=== PATIENT | male | born 1965 | race Caucasian/White ===

== ENCOUNTER 2023-02-11 11:41 | Observation (INO) | payer MEDICARE, SELFPAY ==
[2023-02-11] VITALS (7 sets, daily range): BP systolic 137–151; BP diastolic 72–80; PULSE 60–90; RESP 17–20; TEMP 36.2–36.8; O2SAT 95–96; BMI 33.1
--- NOTE | ~2023-02-11 | XR_ITS ---
EXAMINATION: XR chest 2V DATE: 02/11/2023 11:59 INDICATION: Chest pain and shortness of breath TECHNIQUE: PA and lateral views of the chest were obtained. COMPARISON: None FINDINGS: Nipple shadow projects between the anterior right sixth and seventh ribs. This is confirmed on subseq uent image with nipple markers. Lungs are clear with no focal airspace opacities, pulmonary edema, pl eural effusion or pneumothorax. The cardiomediastinal silhouette is normal. Consistent clips in right upper quadrant. Internal fixation likely for old fracture at the proximal right humerus. There are b ridging osteophytes at multiple levels in the spine, consistent with diffuse idiopathic skeletal hype rostosis (DISH). IMPRESSION: 1. No acute cardiopulmonary disease. Reviewed, dictated and finalized at location A.
--- NOTE | ~2023-02-11 | CT_ITS ---
EXAMINATION: CTA chest PE protocol DATE: 02/11/2023 13:25 INDICATION: Left-sided pleuritic chest pain TECHNIQUE: Computed tomography (CT) pulmonary angiogram of the chest was performed with 100 mL Omnipa que-350 intravenous contrast. Additional 3D reconstructions utilizing coronal maximum intensity proje ction (MIP) were performed. Automated exposure control and iterative reconstruction technique were em ployed. The dose-length product was 908.84 mGy-cm. COMPARISON: None FINDINGS: There are central pulmonary arterial filling defects within the largest in the main pulmonary artery extending into each of the upper, middle and lower lobar and several of the more peripheral subsegmen winifred pulmonary arteries. There is appreciable delay in the contrast opacification of the draining pulm onary veins from the basilar segments of the right lower lobe. Similar but smaller amount of thrombus in the left main pulmonary artery also extending into the left upper, lower and lingular pulmonary a rteries and some of the more peripheral segmental pulmonary arteries. Small focus of discoid atelecta sis at the posterolateral right upper lobe and minimal streaky atelectasis in the superior segment of the left lower lobe. Lungs remain otherwise clear with no evident pulmonary infarcts, pneumonia, pul monary edema or pleural effusion. Heart size is normal. No evident bowing of the ventricular septum t o suggest right heart strain. No pericardial effusion. Thoracic aorta is normal in caliber with no di ssection. No pathologically enlarged thoracic lymphadenopathy. Cholecystectomy clips at the gallbladd er fossa. 1.5 cm right renal cyst. Internal fixation at the proximal right humerus. There are bridgin g osteophytes at multiple levels in the spine, consistent with diffuse idiopathic skeletal hyperostos is (DISH). IMPRESSION: 1. Extensive pulmonary embolism involving all the lobes in both lungs but without evident right heart strain.. Dr. Wray discussed these findings with Dr. Da Silva at 1:32 PM. Reviewed, dictated and finalized at location A. IMPRESSION: 1. Extensive pulmonary embolism involving all the lobes in both lungs but witho ut evident right heart strain.. Dr. Wray discussed these findings with Dr. Da Silva at 1:32 PM.
--- NOTE | ~2023-02-11 | US_ITS ---
EXAMINATION: US venous doppler UE LT DATE: 02/12/2023 14:24 INDICATION: Pulmonary embolism with pleuritic left chest pain and shortness of breath TECHNIQUE: Grayscale images without and with compression and Doppler images of the left upper extremi ty veins were obtained. COMPARISON: None. FINDINGS: The left internal jugular vein, subclavian vein, axillary vein, brachial vein, basilic vein, cephalic vein, radial vein, and ulnar vein are patent. IMPRESSION: 1. Patent left upper extremity veins. No evidence of venous thrombosis. Reviewed, dictated and finalized at location A.
--- NOTE | ~2023-02-11 | US_ITS ---
EXAMINATION: US venous doppler [facility] DATE: 02/12/2023 14:24 INDICATION: Pulmonary embolism with chest pain and shortness of breath TECHNIQUE: Grayscale ultrasound images without and with compression and Doppler ultrasound images of the bilateral lower extremity veins were obtained. COMPARISON: None. FINDINGS: There is noncompressible occlusive appearing thrombus in the right posterior tibial veins at the prox imal to mid right calf. The visualized portions of right common femoral vein, profunda (deep) femoral vein, femoral vein, popliteal vein, posterior tibial veins in the distal calf, peroneal veins, gastr ocnemius vein and greater saphenous vein outflow are patent. The visualized portions of left common femoral vein, profunda femoral vein, femoral vein, popliteal v ein, posterior tibial veins, peroneal veins, gastrocnemius vein and greater saphenous vein outflow ar e patent. IMPRESSION: 1. [id number] deep venous thrombosis in the right posterior tibial veins of the proximal to mid right calf. 2. No deep venous thrombosis in the left lower limb. Reviewed, dictated and finalized at location A. IMPRESSION: 1. [id number] deep venous thrombosis in the right posterior tibial veins o f the proximal to mid right calf. 2. No deep venous thrombosis in the left lower limb.
--- NOTE | 2023-02-11 11:44 | ECG_ITS ---
Measurements Intervals [place] Rate: 85 P: 63 ID: [id number] QRS: -2 QRSD: 98 T: 63 QT: 327 QTc: 390 Interpretive Statements SINUS RHYTHM INCOMPLETE RIGHT BUNDLE BRANCH BLOCK [90+ ms QRS DURATION, TERMINAL R IN V1/V2, 40+ ms S IN I/aVL/V4/V5/V6] LEFTWARD AXIS ABNORMAL ECG NO PREVIOUS ECG AVAILABLE FOR COMPARISON Electronically Signed On 02-11-2023 17:16:25 CDT by Joon Alvares M.D.
[2023-02-11 12:02] LABS: Basophils Percent Auto 0.3 % (0.2-1.2); Eosinophils Absolute Auto 0.1 K/mm3 (0-0.3); Eosinophils Percent Auto 0.9 % (0-4.4); Hematocrit 42.6 % (42.0-52.0); Hemoglobin 14.2 g/dL (14.0-18.0); Immature Granulocyte Absolute 0.01 K/mm3 (0.00-0.031); Immature Granulocyte Percent A 0.1 % (0-0.5); Lymphocytes Absolute Auto 1.36 K/mm3 (0.9-3.2); Lymphocytes Percent Auto 20.1 % (18.3-44.2); Mean Corpuscular HGB Conc 33.3 g/dl (32-36); Mean Corpuscular Hemoglobin 30.9 pg (26-34); Mean Corpuscular Volume 92.6 fl (80-100); Mean Platelet Volume 10.2 fl (7.4-10.4); Monocytes Absolute Auto 0.6 K/mm3 (0.1-0.6); Monocytes Percent Auto 8.4 % (2.6-8.5); Neutrophils Absolute Auto 4.8 K/mm3 (1.3-6.7); Neutrophils Percent Auto 70.2 % (45.5-73.1); Platelet Count Result 145 k/mm3 (150-375); Red Cell Distribution Width 13.8 % (11.5-14.5); White Blood Count 6.8 K/mm3 (4.5-10.0)
[2023-02-11 12:13] LABS: Partial Thromboplastin Time 27.2 SECONDS (22.3-36.8); Prothrombin Time 13.5 Seconds (11.1-14.7)
[2023-02-11 12:14] LABS: Alanine Aminotransferase 22 U/L (6-50); Albumin Level 4.4 g/dL (3.5-5.1); Alkaline Phosphatase 54 U/L (38-126); Anion Gap 8 mmol/L (8-16); Aspartate Amino Transferase 21 U/L (17-59); Bilirubin,Total 0.7 mg/dL (0.2-1.3); Blood Urea Nitrogen 10 mg/dL (9-20); Calcium 9.3 mg/dL (8.4-10.2); Carbon Dioxide 29 mmol/L (22-30); Chloride 103 mmol/L (98-107); Estimated CRCL calculation 15 ml/min; Estimated Glomerular Filt Rate 57; Glucose 106 mg/dL (65-110); Potassium 3.9 mmol/L (3.4-5.0); Sodium 140 mmol/L (137-145)
--- NOTE | 2023-02-11 12:44 | ED.SOB ---
HPI - SOB/Dyspnea General Chief Complaint: Shortness of Breath/Dyspnea Stated Complaint: SOB, chest pain, thinks blood clot Time Seen by Provider: 02/11/23 12:02 History of Present Illness HPI Narrative: Patient is a 57-year-old male with a history of hypertension, hypothyroidism, PE no longer on anticoagulation presenting with chest pain. Patient states that he recently completed a long drive. States that he woke up this morning with left-sided pleuritic chest pain associated with shortness of breath that is worsened with exertion. States it feels similarly to his prior episode of PE. States he has not been on blood thinners for 14 years. He also reports some lightheadedness. Denies numbness or weakness, fevers, abdominal pain, nausea or vomiting, diarrhea, leg swelling, dysuria. Related Data Home Medications Medication Instructions Recorded Confirmed aripiprazole 10 mg tablet (Abilify) 10 mg PO DAILY 02/11/23 02/11/23 elviteg 150 mg-cob 150 mg-emtricit 1 tablet PO QAM 02/11/23 02/11/23 200 mg-tenofo alafenam 10 mg tablet (Genvoya) fenofibric acid (choline) 135 mg 135 mg PO DAILY 02/11/23 02/11/23 capsule,delayed release levothyroxine 75 mcg tablet 75 mcg PO DAILY 02/11/23 02/11/23 lisinopril 10 1 tablet PO DAILY 02/11/23 02/11/23 mg-hydrochlorothiazide 12.5 mg tablet metoprolol succinate 25 mg capsule 25 mg PO DAILY 02/11/23 02/11/23 sprinkle, ext. release 24 hr sertraline 100 mg tablet 100 mg PO DAILY 02/11/23 02/11/23 tamsulosin 0.4 mg capsule 0.4 mg PO DAILY 02/11/23 02/11/23 Allergies Allergy/AdvReac Type Severity Reaction Status Date / Time ketorolac [From Toradol] AdvReac Agitated Verified 02/11/23 13:01 Review of Systems Review of Systems: All systems reviewed & are unremarkable except as noted in HPI and below PMFSH Past Medical History Medical History (Updated 02/12/23 @ 13:43 by Shanice Da Silva MD) Asthma BPH (benign prostatic hyperplasia) Depression Fibromyalgia Finger fracture History of fracture of right ankle HIV (human immunodeficiency virus infection) Hyperlipidemia Hypertension Hypothyroidism Pulmonary embolism Surgical History Surgical History (Updated 02/12/23 @ 00:57 by Lela Pompa NP) H/O colonoscopy with polypectomy H/O hernia repair History of appendectomy Hx of cholecystectomy Family History Family History (Updated 02/12/23 @ 01:01 by Lela Pompa NP) Mother Heart disease Sibling DVT (deep venous thrombosis) Pulmonary embolism Carcinoma of colon Sister Father CAD (coronary artery disease) Aneurysm Social History Social History (Updated 02/12/23 @ 00:59 by Lela Pompa NP) Social History: The patient is single and lives with roommates. He is and has 3 sons. He is no longer with the partner that gave him HIV. The patient is disabled. He does not have a durable power deputy prosecuting attorney for healthcare. He is a former smoker. Code status full code Smoking packs per day: 1 Smoking cigarettes per day: 20.0 Years smoked: 10 Smoking pack-years: 10.00 Smoking status: Former smoker Tobacco type: cigarettes Substance use type: marijuana Lack of Transportation: No Lack of Food: Never True Current Housing: I Have Housing Concerned About Future Housing: No Difficulty Paying Gas/Electric Bills: No Difficulty Paying for Meds: No Currently Unemployed: No Education: Bachelor's Degree Difficulty w/ Childcare or Family Care: No Spiritual care concerns: No Exam Narrative: GENERAL: Well-appearing, well-nourished, and in no acute distress. Pleasant and cooperative HEAD: Normocephalic, atraumatic. EYES: PERRLA and EOMI. ENT: Nares clear, no rhinorrhea or epistaxis. Mucous membranes moist. NECK: Supple. CHEST: Clear to auscultation. No respiratory distress. No chest wall tenderness HEART: Regular rate and rhythm. No murmur heard. Normal peripheral pulses. ABDOMEN: Soft, nont
[2023-02-11 12:55] LABS: Lipase 66 U/L (23-300)
[2023-02-11] MEDS: MORPHINE SULFATE (*CRX) 4 MG/ML INJ IV PUSH ×2 (13:02→15:23)
[2023-02-11] MEDS: SODIUM CHLORIDE 0.9% IV 1,000 ML 999 ML IV CONT (13:02)
[2023-02-11 13:08] LABS: NT Pro B Type Natriuretic Pept 126 pg/mL (19.9-100); Troponin I < 0.012 ng/mL (0.000-0.034)
[2023-02-11 13:41] LABS: Influenza A QL RT-PCR Negative (Negative); Influenza B QL RT-PCR Negative (Negative); SARS-CoV-2 RNA PCR Negative (Negative)
[2023-02-11] MEDS: HEPARIN SODIUM 5,000 UNITS/ML VIAL 7000 UNITS IV PUSH ×2 (14:19→21:47)
[2023-02-11] MEDS: HEPARIN SOD/D5W 100 UNITS/ML 25,000 UNITS/250 ML BAG 15 UNITS IV CONT (14:23)
[2023-02-11 15:25] LABS: Troponin I < 0.012 ng/mL (0.000-0.034)
--- NOTE | 2023-02-11 17:50 | ADMGEN ---
This patient, Franki Ramsey, was admitted to IMU Room 201-01 at 1620. Patient/family oriented to hospital policies and general routines including ID bracelet, bed and alarms, visiting hours, pain management, procedures, bathroom and other care routines, personal items, smoking policy, room service/diet, and visiting hours. Information on how to activate the Rapid Response Team has been discussed. Patient/Family are encouraged to report perceived risks to care and to ask questions if they do not understand what they are told or what they should do.
--- NOTE | 2023-02-11 18:03 | PM.IMHP ---
H&P: HPI History of Present Illness Date/Time: 02/11/23 18:03 Chief Complaint: Shortness of breath Narrative: This is a 57-year-old male patient has a history of hypertension and hypothyroidism. He also has a history of HIV positive. The patient stated that he had a PE many years ago that was a non provoked PE and had been on anticoagulation at that time and had been taken off of approximately 14 years ago. The patient has not had any problems since then. The patient stated that he has had a long active yesterday that was approximately 4 hours long. The patient stated that he had a lump in his left forearm that was painful but then later dissipated after he rubbed it. The patient has no swelling or pain in his legs. The patient is more short of breath with exertion. The symptoms are similar to when he had a PE in the past. Chest CTA was read as extensive pulmonary embolism involving all lobes in both lungs but without evident right heart strain. The patient was started on heparin drip. His platelets are 145. Troponins are negative x3. BNP is 126. He is negative for influenza A/B and COVID. The patient was given normal saline, morphine and started on a heparin drip. The patient is being admitted to observation status on the date of service of 02/11/2023. Review of Systems Review of Systems: All systems reviewed & are unremarkable except as noted in HPI and below Constitutional: Constitutional: Reports as per HPI and Reports no additional constitutional complaints Eyes: Eyes: Reports as per HPI and Reports no additional eye complaints ENT: Reports system reviewed and no additional complaints, except as documented and Reports Normal hearing present Cardiovascular: Cardiovascular: Reports no additional cardiovascular complaints Respiratory: Respiratory: Reports no additional respiratory complaints and Reports no additional respiratory complaints Gastrointestinal: Gastrointestinal: Reports as per HPI and Reports no additional gastrointestinal complaints Musculoskeletal: Musculoskeletal: Reports no additional musculoskeletal complaints Integumentary/Breasts: Skin/Breast: Reports system reviewed and no additional complaints, except as docu and Reports as per HPI Neurologic: Reports system reviewed and no additional complaints, except as documented, Reports as per HPI and Reports Normal hearing present Psychiatric: Psychiatric: Reports no additional psychiatric complaints and Reports as per HPI Endocrine: Endocrine: Reports no additional endocrine complaints Hematologic/Lymphatic: Hematologic/Lymphatic: Reports no additional hematologic/lymphatic complaints Allergic/Immunologic: Allergic/Immunologic: Reports no additional allergic/immunologic complaints [facility] Past Medical History Medical History (Updated 02/12/23 @ 01:06 by Lela Pompa NP) Asthma BPH (benign prostatic hyperplasia) Depression Fibromyalgia Finger fracture History of fracture of right ankle HIV (human immunodeficiency virus infection) Hyperlipidemia Hypertension Hypothyroidism Pulmonary embolism Surgical History Surgical History (Updated 02/12/23 @ 00:57 by Lela Pompa NP) H/O colonoscopy with polypectomy H/O hernia repair History of appendectomy Hx of cholecystectomy Family History Family History Mother Heart disease Sibling DVT (deep venous thrombosis) Pulmonary embolism Carcinoma of colon Sister Father CAD (coronary artery disease) Aneurysm Social History Social History (Updated 02/12/23 @ 00:59 by Lela Pompa NP) Social History: The patient is single and lives with roommates. He is and has 3 sons. He is no longer with the partner that gave him HIV. The patient is disabled. He does not have a durable power document review attorney for healthcare. He is a former smoker. Code status full code Smoking packs per day: 1 Smoking cigarettes per da
[2023-02-11 18:19] LABS: Troponin I < 0.012 ng/mL (0.000-0.034)
[2023-02-11] MEDS: HYDROcodone/acetaminophen (*CRX) 5-325 MG TABLET 1 TAB PO (20:44)
[2023-02-11 21:25] LABS: Partial Thromboplastin Time 52.6 SECONDS (22.3-36.8)
[2023-02-12] VITALS (11 sets, daily range): BP systolic 128–152; BP diastolic 62–77; PULSE 53–69; RESP 12–20; TEMP 36.2–36.8; O2SAT 95–98
--- NOTE | 2023-02-12 | ECHO_ITS ---
Patient Info Name: Franki Ramsey Age: 57 years : 1965 Gender: Male Ht: 70 in Wt: 230 lbs BSA: 2.30 m2 HR: 78 bpm BP: 128 / 65 mmHg Heart Rhythm: Sinus Rhythm Technical Quality: Fair Exam Date: 02/12/2023 8:30 AM Exam Location: [facility] Pulmonary Exam Room: Patient Status: Inpatient Admit Date: 02/11/2023 Staff Ordering Physician: Lela Pompa NP Butt Welder: Janet Smart RDCS Attending Provider: Tabby Tello DO Referring Physician: Peña BAIRD; Exam Type: CA echo doppler color flow Study Info Indications - pulm embolism Complete two-dimensional, color flow and Doppler transthoracic echocardiogram is performed. Summary 1. Complete two-dimensional, color flow and Doppler transthoracic echocardiogram is performed. 2. Left ventricular chamber dimension is normal. 3. Left ventricular systolic function is normal, estimated at 65-70%. 4. There is mildly increased left ventricular wall thickness. 5. The left ventricular diastolic function is grade II diastolic dysfunction. 6. Right ventricular chamber dimension is normal. 7. Right ventricular systolic function is normal. TAPSE 2.2. 8. There is trace tricuspid valve regurgitation. 9. Mild pulmonary hypertension, estimated pulmonary arterial systolic pressure is 37 mmHg. Left Ventricle Left ventricular chamber dimension is normal. Left ventricular systolic function is normal, estimated at 65-70%. There is mildly increased left ventricular wall thickness. The left ventricular diastolic function is grade II diastolic dysfunction. Right Ventricle Right ventricular chamber dimension is normal. Right ventricular systolic function is normal. TAPSE 2.2. Left Atria Left atrial chamber dimension is mildly enlarged. Right Atria Right atrial chamber dimension is mildly enlarged. Aortic Valve The aortic valve is not well visualized. There is no aortic valve stenosis. There is mild aortic valve regurgitation. Pulmonic Valve The pulmonic valve is not well visualized. Mitral Valve The mitral valve has normal leaflets. There is trace mitral valve regurgitation. Mild mitral annular calcification. Tricuspid Valve The tricuspid valve leaflets are normal. There is trace tricuspid valve regurgitation. Mild pulmonary hypertension, estimated pulmonary arterial systolic pressure is 37 mmHg. Pericardium/Pleural The pericardium appears epicardial fat pad. There is trivial pericardial effusion. Inferior Vena Cava Normal inferior vena cava with >50% collapse upon inspiration consistent with normal right atrial pressure, 5 mmHg. Aorta The aortic root size at the sinus of Valsalva is normal. Left Ventricular Outflow Tract Name Value Normal LVOT 2D LVOT Diameter 2.1 cm LVOT Doppler LVOT Peak Gradient 5 mmHg LVOT Mean Gradient 3 mmHg LVOT VTI 22 cm LVOT VTI/AV VTI Ratio 0.9 LVOT Stroke Volume 79 ml LVOT CO 18.6 l/min LVOT CI 8.1 l/min/m2 Pulmonic Valve
[2023-02-12] MEDS: HYDROmorphone HCL INJ (*CRX) 1 MG/ML SYR 0.5 MG IV PUSH (00:26)
[2023-02-12 04:20] LABS: Basophils Percent Auto 0.7 % (0.2-1.2); Eosinophils Absolute Auto 0.1 K/mm3 (0-0.3); Eosinophils Percent Auto 2.3 % (0-4.4); Hematocrit 40.2 % (42.0-52.0); Hemoglobin 13.5 g/dL (14.0-18.0); Immature Platelet Fraction Pct 5.6 % (0.9-11.2); Lymphocytes Absolute Auto 1.44 K/mm3 (0.9-3.2); Lymphocytes Percent Auto 33.6 % (18.3-44.2); Mean Corpuscular HGB Conc 33.6 g/dl (32-36); Mean Corpuscular Hemoglobin 31.1 pg (26-34); Mean Corpuscular Volume 92.6 fl (80-100); Mean Platelet Volume 10.8 fl (7.4-10.4); Monocytes Absolute Auto 0.4 K/mm3 (0.1-0.6); Monocytes Percent Auto 9.8 % (2.6-8.5); Neutrophils Absolute Auto 2.3 K/mm3 (1.3-6.7); Neutrophils Percent Auto 53.6 % (45.5-73.1); Platelet Count Result 131 k/mm3 (150-375); Red Blood Count 4.34 M/mm3 (4.6-6.20); Red Cell Distribution Width 13.8 % (11.5-14.5); White Blood Count 4.3 K/mm3 (4.5-10.0)
[2023-02-12 04:24] LABS: Lactic Acid Reflex 0.6 mmol/L (0.7-2.0)
[2023-02-12 04:26] LABS: Alanine Aminotransferase 36 U/L (6-50); Alkaline Phosphatase 60 U/L (38-126); Anion Gap 6 mmol/L (8-16); Aspartate Amino Transferase 60 U/L (17-59); Blood Urea Nitrogen 12 mg/dL (9-20); Calcium 8.9 mg/dL (8.4-10.2); Carbon Dioxide 27 mmol/L (22-30); Chloride 105 mmol/L (98-107); Estimated CRCL calculation 73 ml/min; Estimated Glomerular Filt Rate > 60; Glucose 102 mg/dL (65-110); Magnesium 2.1 mg/dL (1.6-2.3); Potassium 3.7 mmol/L (3.4-5.0); Sodium 138 mmol/L (137-145)
[2023-02-12 04:35] LABS: Partial Thromboplastin Time 82.7 SECONDS (22.3-36.8)
[2023-02-12] MEDS: LEVOTHYROXINE SODIUM 75 MCG TABLET PO (06:11)
[2023-02-12 07:42] LABS: Free T4 Free Thyroxine Reflex 1.37 ng/dL (0.78-2.19)
[2023-02-12] MEDS: HEPARIN SOD/D5W 100 UNITS/ML 25,000 UNITS/250 ML BAG 18 UNITS IV CONT (08:36)
--- NOTE | 2023-02-12 08:54 | PHAR ---
HOME MED: GENVOYA [phone] MG; TAKE ONE TABLET BY MOUTH DAILY WITH FOOD. VERIFIED MY PHARMACY.
--- NOTE | 2023-02-12 09:06 | PM.IMPN ---
Progress Note: A&P Assessment and Plan (1) Pulmonary embolism: Code(s): I26.99 - Other pulmonary embolism without acute cor pulmonale Status: Acute Assessment and Plan: DC heparin drip, start Eliquis Check venous Dopplers. Check echo. No heart strain is noted at this time Due to recurrent blood clots, consult hematology is pending (2) BPH (benign prostatic hyperplasia): Code(s): N40.0 - Benign prostatic hyperplasia without lower urinary tract symptoms Status: Acute Assessment and Plan: Continue with Flomax / tamsulosin (3) Hypertension: Code(s): I10 - Essential (primary) hypertension Status: Acute Assessment and Plan: Continue with lisinopril, hydrochlorothiazide and metoprolol. (4) Hypothyroidism: Code(s): E03.9 - Hypothyroidism, unspecified Status: Acute Assessment and Plan: Continue with levothyroxine and check thyroid level. (5) Hyperlipidemia: Code(s): E78.5 - Hyperlipidemia, unspecified Status: Acute Assessment and Plan: Continue with fenofibrate (6) Depression: Code(s): F32.A - Depression, unspecified Status: Acute Assessment and Plan: Continue with Zoloft and Abilify (7) Fibromyalgia: Code(s): M79.7 - Fibromyalgia Status: Acute Assessment and Plan: Continue with current treatment. Continue with Zoloft (8) HIV (human immunodeficiency virus infection): Code(s): B20 - Human immunodeficiency virus [HIV] disease Status: Acute Assessment and Plan: Continue with Genvoya which is non formulary at this hospital. The patient will need to have somebody bring it from home. I did explain this to the patient. Plan DVT prophylaxis with SCDs GI prophylaxis not indicated Code status full code Subjective Date/time seen: 02/12/23 09:06 Interval history: No overnight events noted. No chest pain or shortness of breath. No nausea, vomiting or diarrhea. No fevers or chills. He states he feels much better than when he came in. Review of Systems Review of Systems: 12 point review of systems was assessed and was negative except as noted in the HPI Exam Narrative: General: No acute distress, alert and oriented per baseline HEENT: Atraumatic, normocephalic, mucous membranes moist CV: Regular rate and rhythm, S1, S2 Lungs: Clear to auscultation bilaterally, no rales or crackles noted, no wheezes, good air entry Abdomen: Soft, nontender, nondistended Extremities: Normal to inspection Skin: No rashes noted, no lesions or wounds seen Psych: Euthymic, normal affect Objective Data Vital Signs Vital Signs: Vital Signs - 24 hr 02/11/23 11:46 02/11/23 14:00 02/11/23 16:15 Temperature 98.2 F 97.6 F Pulse Rate 90 70 Respiratory Rate 17 18 Blood Pressure 151/80 H 151/74 H Pulse Oximetry 95 96 Oxygen Delivery Room Air Room Air 02/11/23 18:00 02/11/23 20:00 02/11/23 20:00 Temperature 97.1 F L Pulse Rate 64 60 60 Respiratory Rate 20 20 Blood Pressure 137/72 Pulse Oximetry 96 96 Oxygen Delivery Room Air 02/11/23 20:00 02/11/23 22:00 02/12/23 00:00 Temperature 97.1 F L Pulse Rate 69 65 69 Respiratory Rate 16 Blood Pressure 143/77 H Pulse Oximetry 95 Oxygen Delivery 02/12/23 00:00 02/12/23 00:00 02/12/23 02:00 Temperature Pulse Rate 69 64 57 L Respiratory Rate 16 Blood Pressure Pulse Oximetry 95 Oxygen Delivery Room Air 02/12/23 04:00 02/12/23 04:00 02/12/23 04:00 Temperature 97.2 F L Pulse Rate 55 L 56 L 56 L Respiratory Rate 16 16 Blood Pressure 128/65 Pulse Oximetry 95 95 Oxygen Delivery Room Air 02/12/23 05:29 02/11/23 22:36 02/12/23 08:00 Temperature 98.2 F Pulse Rate 53 L 64 Respiratory Rate 16 Blood Pressure 140/73 Pulse Oximetry 95 97 Oxygen Delivery Room Air 02/11/23 16:44 Temperature 97.6 F Pulse Rate
[2023-02-12] MEDS: FENOFIBRATE NANOCRYSTALLIZED 145 MG TABLET PO (09:07)
[2023-02-12] MEDS: hydroCHLOROthiazide 12.5 MG CAPSULE PO (09:07)
[2023-02-12] MEDS: ARIPiprazole 10 MG TABLET PO (09:07)
[2023-02-12] MEDS: METOPROLOL SUCCINATE EXT REL 25 MG TABCR PO (09:07)
[2023-02-12] MEDS: lisinopriL 10 MG TABLET PO (09:08)
[2023-02-12] MEDS: SERTRALINE HCL 50 MG TABLET 100 MG PO (09:08)
[2023-02-12] MEDS: TAMSULOSIN HCL 0.4 MG CAPSULE PO (09:08)
[2023-02-12] MEDS: HYDROcodone/acetaminophen (*CRX) 5-325 MG TABLET 1 TAB PO (09:15)
[2023-02-12 09:21] LABS: Total Triiodothyronine (T3) 0.97 NG/ML (0.97-1.69)
[2023-02-12 09:53] LABS: Basophils Percent Auto 0.5 % (0.2-1.2); Eosinophils Absolute Auto 0.1 K/mm3 (0-0.3); Eosinophils Percent Auto 1.6 % (0-4.4); Hematocrit 39.5 % (42.0-52.0); Hemoglobin 13.2 g/dL (14.0-18.0); Immature Granulocyte Absolute 0.01 K/mm3 (0.00-0.031); Immature Granulocyte Percent A 0.3 % (0-0.5); Immature Platelet Fraction Pct 5.2 % (0.9-11.2); Lymphocytes Percent Auto 28.6 % (18.3-44.2); Mean Corpuscular HGB Conc 33.4 g/dl (32-36); Mean Corpuscular Hemoglobin 30.9 pg (26-34); Mean Corpuscular Volume 92.5 fl (80-100); Mean Platelet Volume 10.7 fl (7.4-10.4); Monocytes Absolute Auto 0.4 K/mm3 (0.1-0.6); Monocytes Percent Auto 10.6 % (2.6-8.5); Neutrophils Absolute Auto 2.3 K/mm3 (1.3-6.7); Neutrophils Percent Auto 58.4 % (45.5-73.1); Platelet Count Result 130 k/mm3 (150-375); Red Blood Count 4.27 M/mm3 (4.6-6.20); Red Cell Distribution Width 13.9 % (11.5-14.5); White Blood Count 3.9 K/mm3 (4.5-10.0)
[2023-02-12 10:01] LABS: Alanine Aminotransferase 33 U/L (6-50); Albumin Level 4.1 g/dL (3.5-5.1); Alkaline Phosphatase 52 U/L (38-126); Anion Gap 7 mmol/L (8-16); Aspartate Amino Transferase 37 U/L (17-59); Bilirubin,Total 0.7 mg/dL (0.2-1.3); Blood Urea Nitrogen 11 mg/dL (9-20); Calcium 9.1 mg/dL (8.4-10.2); Carbon Dioxide 29 mmol/L (22-30); Chloride 102 mmol/L (98-107); Estimated CRCL calculation 74 ml/min; Estimated Glomerular Filt Rate > 60; Glucose 93 mg/dL (65-110); Potassium 3.9 mmol/L (3.4-5.0); Sodium 138 mmol/L (137-145)
[2023-02-12 10:13] LABS: Partial Thromboplastin Time 51.8 SECONDS (22.3-36.8)
[2023-02-12] MEDS: HEPARIN SODIUM 5,000 UNITS/ML VIAL 7000 UNITS IV PUSH (10:19)
--- NOTE | 2023-02-12 17:20 | PC.NURSE ---
This patient, Franki Ramsey, was transferred to [facility] on 02/12/23 at 1721. Personal belongings sent with patient. Report given to Estefany LANGE. Appropriate documentation sent with patient.
[2023-02-12] MEDS: APIXABAN 5 MG TABLET 10 MG PO (21:13)
[2023-02-13] VITALS: BP 139/67; PULSE 55; RESP 18; TEMP 36.8; O2SAT 94
[2023-02-13 04:00] VITALS: BP 136/67; PULSE 58; RESP 18; TEMP 36.4; O2SAT 95
[2023-02-13 05:21] LABS: Basophils Percent Auto 0.5 % (0.2-1.2); Eosinophils Absolute Auto 0.2 K/mm3 (0-0.3); Eosinophils Percent Auto 4.2 % (0-4.4); Hematocrit 39.7 % (42.0-52.0); Hemoglobin 13.1 g/dL (14.0-18.0); Immature Platelet Fraction Pct 5.1 % (0.9-11.2); Lymphocytes Absolute Auto 1.49 K/mm3 (0.9-3.2); Mean Corpuscular Hemoglobin 30.7 pg (26-34); Mean Platelet Volume 10.5 fl (7.4-10.4); Monocytes Absolute Auto 0.4 K/mm3 (0.1-0.6); Monocytes Percent Auto 9.4 % (2.6-8.5); Neutrophils Percent Auto 48.9 % (45.5-73.1); Platelet Count Result 125 k/mm3 (150-375); Red Blood Count 4.27 M/mm3 (4.6-6.20); Red Cell Distribution Width 13.5 % (11.5-14.5)
[2023-02-13] MEDS: LEVOTHYROXINE SODIUM 75 MCG TABLET PO (05:28)
[2023-02-13] MEDS: HYDROcodone/acetaminophen (*CRX) 5-325 MG TABLET 1 TAB PO (05:31)
[2023-02-13 05:35] LABS: Alanine Aminotransferase 26 U/L (6-50); Alkaline Phosphatase 52 U/L (38-126); Anion Gap 6 mmol/L (8-16); Aspartate Amino Transferase 25 U/L (17-59); Bilirubin,Total 0.6 mg/dL (0.2-1.3); Blood Urea Nitrogen 13 mg/dL (9-20); Calcium 9.2 mg/dL (8.4-10.2); Carbon Dioxide 30 mmol/L (22-30); Chloride 103 mmol/L (98-107); Estimated CRCL calculation 74 ml/min; Estimated Glomerular Filt Rate > 60; Glucose 97 mg/dL (65-110); Potassium 3.9 mmol/L (3.4-5.0); Sodium 139 mmol/L (137-145)
[2023-02-13 08:00] VITALS: BP 135/63; PULSE 56; RESP 17; TEMP 36.3; O2SAT 99
[2023-02-13] MEDS: TAMSULOSIN HCL 0.4 MG CAPSULE PO (08:20)
[2023-02-13] MEDS: APIXABAN 5 MG TABLET 10 MG PO (08:20)
[2023-02-13] MEDS: METOPROLOL SUCCINATE EXT REL 25 MG TABCR PO (08:20)
[2023-02-13] MEDS: ARIPiprazole 10 MG TABLET PO (08:20)
[2023-02-13] MEDS: lisinopriL 10 MG TABLET PO (08:21)
[2023-02-13] MEDS: hydroCHLOROthiazide 12.5 MG CAPSULE PO (08:21)
[2023-02-13] MEDS: FENOFIBRATE NANOCRYSTALLIZED 145 MG TABLET PO (08:21)
[2023-02-13] MEDS: SERTRALINE HCL 50 MG TABLET 100 MG PO (08:21)
[2023-02-13 12:00] VITALS: BP 142/73; PULSE 51; RESP 16; TEMP 36.2; O2SAT 97
--- NOTE | 2023-02-13 14:13 | WPDPN ---
Progress Note: A&P Assessment and Plan (1) Pulmonary embolism: Code(s): I26.99 - Other pulmonary embolism without acute cor pulmonale Status: Acute Assessment and Plan: DC heparin drip, start Eliquis Check venous Dopplers. Check echo. No heart strain is noted at this time Due to recurrent blood clots, consult hematology is pending 02/13/2023 interval history: patient with histroy of PE 15 years ago and was treated for 1 yr and stopped anticoagulation by his PMD, and he was doing fine until he drove for 2 hours and presented with DVT and PE, he cardiac echo did not show any right sided heart strain, he was treated heparin and now he is no Eliquis, he has not complaints of CP, SBO or dizzines, able to ambulate to bathroom, patient has not seen retail receiving clerk, will plan afterward, will continue to monitor. (2) BPH (benign prostatic hyperplasia): Code(s): N40.0 - Benign prostatic hyperplasia without lower urinary tract symptoms Status: Acute Assessment and Plan: Continue with Flomax / tamsulosin (3) Hypertension: Code(s): I10 - Essential (primary) hypertension Status: Acute Assessment and Plan: Continue with lisinopril, hydrochlorothiazide and metoprolol. (4) Hypothyroidism: Code(s): E03.9 - Hypothyroidism, unspecified Status: Acute Assessment and Plan: Continue with levothyroxine and check thyroid level. (5) Hyperlipidemia: Code(s): E78.5 - Hyperlipidemia, unspecified Status: Acute Assessment and Plan: Continue with fenofibrate (6) Depression: Code(s): F32.A - Depression, unspecified Status: Acute Assessment and Plan: Continue with Zoloft and Abilify (7) Fibromyalgia: Code(s): M79.7 - Fibromyalgia Status: Acute Assessment and Plan: Continue with current treatment. Continue with Zoloft (8) HIV (human immunodeficiency virus infection): Code(s): B20 - Human immunodeficiency virus [HIV] disease Status: Acute Assessment and Plan: Continue with Genvoya which is non formulary at this hospital. The patient will need to have somebody bring it from home. I did explain this to the patient. Plan DVT prophylaxis with SCDs GI prophylaxis not indicated Code status full code Subjective Date/time seen: 02/13/23 14:13 Interval history: No overnight events noted. No chest pain or shortness of breath. No nausea, vomiting or diarrhea. No fevers or chills. He states he feels much better than when he came in. 02/13/2023 interval history: patient with histroy of PE 15 years ago and was treated for 1 yr and stopped anticoagulation by his PMD, and he was doing fine until he drove for 2 hours and presented with DVT and PE, he cardiac echo did not show any right sided heart strain, he was treated heparin and now he is no Eliquis, he has not complaints of CP, SBO or dizzines, able to ambulate to bathroom, patient has not seen retail receiving clerk, will plan afterward, will continue to monitor. Review of Systems Review of Systems: 12 point review of systems was assessed and was negative except as noted in the HPI Exam Narrative: Patient is comfortable, NAD HEENT: eyes are clear and none icteric LUNGS: Normal respiratory effort HEART: RR S1S2 ABD: Distended Lower extremities: no edema SKIN: nonjaundiced Neuro: grossly intact. Objective Data Vital Signs Vital Signs: Vital Signs - 24 hr 02/12/23 16:00 02/12/23 19:40 02/12/23 20:00 Temperature 98.3 F 98.0 F Pulse Rate 55 L 55 L Respiratory Rate 20 18 Blood Pressure 152/72 H 128/64 Pulse Oximetry 98 97 Oxygen Delivery Room Air 02/13/23 00:00 02/13/23 04:00 02/13/23 08:00 Temperature 98.3 F 97.6 F 97.3 F L Pulse Rate 55 L 58 L 56 L Respiratory Rate 18 18 17 Blood Pressure 139/67 136/67 135/63 Pulse Oximetry 94 95 99 Oxygen Delivery 02/13/23 12:00 Temperature 97.
--- NOTE | 2023-02-13 15:46 | PM.DS ---
DS: Admitting Diagnosis Discharge Date 02/13/2023 Admitting Diagnosis Shortness of breath DS: Discharge Diagnosis Discharge Diagnosis (1) Pulmonary embolism: Code(s): I26.99 - Other pulmonary embolism without acute cor pulmonale Status: Acute Assessment and Plan: DC heparin drip, start Eliquis Check venous Dopplers. Check echo. No heart strain is noted at this time Due to recurrent blood clots, consult hematology is pending 02/13/2023 interval history: patient with histroy of PE 15 years ago and was treated for 1 yr and stopped anticoagulation by his PMD, and he was doing fine until he drove for 2 hours and presented with DVT and PE, he cardiac echo did not show any right sided heart strain, he was treated heparin and now he is no Eliquis, he has not complaints of CP, SBO or dizzines, able to ambulate to bathroom, patient has not seen correction officer city or county jail, will plan afterward, will continue to monitor. (2) BPH (benign prostatic hyperplasia): Code(s): N40.0 - Benign prostatic hyperplasia without lower urinary tract symptoms Status: Acute Assessment and Plan: Continue with Flomax / tamsulosin (3) Hypertension: Code(s): I10 - Essential (primary) hypertension Status: Acute Assessment and Plan: Continue with lisinopril, hydrochlorothiazide and metoprolol. (4) Hypothyroidism: Code(s): E03.9 - Hypothyroidism, unspecified Status: Acute Assessment and Plan: Continue with levothyroxine and check thyroid level. (5) Hyperlipidemia: Code(s): E78.5 - Hyperlipidemia, unspecified Status: Acute Assessment and Plan: Continue with fenofibrate (6) Depression: Code(s): F32.A - Depression, unspecified Status: Acute Assessment and Plan: Continue with Zoloft and Abilify (7) Fibromyalgia: Code(s): M79.7 - Fibromyalgia Status: Acute Assessment and Plan: Continue with current treatment. Continue with Zoloft (8) HIV (human immunodeficiency virus infection): Code(s): B20 - Human immunodeficiency virus [HIV] disease Status: Acute Assessment and Plan: Continue with Genvoya which is non formulary at this hospital. The patient will need to have somebody bring it from home. I did explain this to the patient. Plan DVT prophylaxis with SCDs GI prophylaxis not indicated Code status full code DS: Summary Hospital Course Reason for hospitalization: Shortness of breath Narrative: This is a 57-year-old male patient has a history of hypertension and hypothyroidism.? He also has a history of HIV positive.? The patient stated that he had a PE many years ago that was a non provoked PE and had been on anticoagulation at that time and had been taken off of approximately 14 years ago.? The patient has not had any problems since then.? The patient stated that he has had a long active yesterday that was approximately 4 hours long.? The patient stated that he had a lump in his left forearm that was painful but then later dissipated after he rubbed it.? The patient has no swelling or pain in his legs.? The patient is more short of breath with exertion.? The symptoms are similar to when he had a PE in the past.? Chest CTA was read as extensive pulmonary embolism involving all lobes in both lungs but without evident right heart strain.? The patient was started on heparin drip.? His platelets are 145.? Troponins are negative x3.? BNP is 126.? He is negative for influenza A/B and COVID.? The patient was given normal saline, morphine and started on a heparin drip.? The patient is being admitted to observation status on the date of service of 02/11/2023. Hospital Course: patient with histroy of PE 15 years ago and was treated for 1 yr and stopped anticoagulation by his PMD, and he was doing fine until he drove for 2 hours and presented with DVT and PE, he cardiac echo did not show any right sided heart strai
== END 2023-02-13 16:38 | disposition home or self-care (01) ==
LOC: ANHED 13:45 → ANHIMU 16:13 → ANH2MED 02-13 08:05 → ANHIMU 02-16 08:57
PROVIDERS: Emergency Medicine; Internal Medicine; Nurse Practitioner; Admitting Provider Student in an Organized Health Care Education/Training Program; Emergency Provider Emergency Medicine; Visit Provider Family Medicine
DX: I26.99 Other pulmonary embolism without acute cor pulmonale (principal); I82.441 Acute embolism and thrombosis of right tibial vein; N40.0 Benign prostatic hyperplasia without lower urinary tract symptoms; I11.9 Hypertensive heart disease without heart failure; E03.9 Hypothyroidism, unspecified; E78.5 Hyperlipidemia, unspecified; F32.A Depression, unspecified; M79.7 Fibromyalgia; B20 Human immunodeficiency virus [HIV] disease; I27.20 Pulmonary hypertension, unspecified; Z20.822 Contact with and (suspected) exposure to COVID-19; D69.6 Thrombocytopenia, unspecified; I45.10 Unspecified right bundle-branch block; R94.31 Abnormal electrocardiogram [ECG] [EKG]; R79.89 Other specified abnormal findings of blood chemistry; J45.909 Unspecified asthma, uncomplicated; F12.90 Cannabis use, unspecified, uncomplicated; Z87.891 Personal history of nicotine dependence; Z84.89 Family history of other specified conditions; Z79.899 Other long term (current) drug therapy
CPT/HCPCS: 36415; 71046; 71275; 80053; 83605; 83690; 83735; 83880; 84439; 84443; 84480; 84484; 85025; 85055; 85610; 85730; 87636; 93005; 93306; 93970; 93971; 96361; 96374; 96375; 96376; 99285; A9270; G0378; J1170; J1644; J2270; J7030; Q9967